=== PATIENT | female | born 1960 | race Caucasian/White ===

== ENCOUNTER → 2018-09-29 | Outpatient (CLI) | payer BC ==
[~2018-09-29] MED LIST: ASCO-191 PO; AZIT-1 PO; BENZ200C15 PO; CET10 PO; CHOL500025 PO; CYA1000 PO; GUAI120L3 PO; HORSETAIL; METR250 PO; MULT1TAB64 PO; OMEG-11 PO; POTA99TA6 PO; PROLOPRIM PO; TURM500C7 PO; VITA1CAP46 PO; [UNRECOGNIZED DRUG - REMARK]
[2018-09-29 10:00] LABS: PLATELET COUNT, AUTOMATED 269 K/uL (150-450)
[2018-09-29 10:09] LABS: LDL CHOLESTEROL 74 mg/dl
== END ==
LOC: LAB 09:05
PROVIDERS: ATTEND Internal Medicine
DX: Z00.00 Encounter for general adult medical examination without abnormal findings (principal); Z87.891 Personal history of nicotine dependence; J45.909 Unspecified asthma, uncomplicated
CPT/HCPCS: 36415; 81001; 82040; 82247; 82310; 82374; 82435; 82465; 82565; 82947; 83718; 84075; 84132; 84155; 84295; 84443; 84450; 84460; 84478; 84520; 85025

== ENCOUNTER → 2018-11-09 | Outpatient (CLI) | payer BC ==
--- NOTE | 2018-11-15 10:13 | RADIOLOGY IMAGING REPORT ---
FACILITY: [facility] [place] PATIENT NAME: JAC MEDINA : [id number] MR: [id number] V: [id number] EXAM DATE: [id number] ORDERING PHYSICIAN: JARED ESPINOZA TECHNOLOGIST: Monica Guerrero PROCEDURE:BILATERAL DIGITAL SCREENING MAMMOGRAM WITH CAD ASSISTED INTERPRETATION & 3D TOMOSYNTHESIS COMPARISON:Prior mammograms 04/16/15. INDICATIONS:SCREENING FINDINGS: Previous outside mammograms have just now been received for comparison. The breasts are heterogeneously dense which can obscure small masses. The parenchymal pattern has remained stable allowing for difference in mammographic technique & patient positioning. There is a benign appearing fatty replaced lymph node in the upper outer quadrant of the Left breast in the posterior 1/3. DIAGNOSTIC CATEGORY 2--BENIGN FINDING. RECOMMENDATIONS: ROUTINE MAMMOGRAM AND CLINICAL EVALUATION. IMPRESSION: BIRADS 2: Benign finding. No significant abnormality is seen. Dictated by: Ruchi Reid M.D. on 11/14/2018 at 15:55 Transcribed by: FABRICE on 11/15/2018 at 10:08 Approved by: Ruchi Reid M.D. on 11/15/2018 at 10:12 [facility]
== END ==
LOC: MAMO 01:47
PROVIDERS: ATTEND Internal Medicine
DX: Z12.31 Encounter for screening mammogram for malignant neoplasm of breast (principal)
CPT/HCPCS: 77063; 77067